=== PATIENT | female | born 1950 | race Caucasian/White ===

== ENCOUNTER 2017-03-27 06:48 | Day surgery (SDC) | payer MEDICARE ==
[~2017-03-27] VITALS: Ht 149.9 cm; Wt 72.7 kg
[~2017-03-27 06:48] MED LIST: ACET100V3 INH; ALBU0.63 NEB; ALBU6.7H INH; ALPR1TAB2 PO; BUDE10.2 INH; BUTA1CAP30 PO; CHOL500050 PO; DOCU100T3 PO; FLUN8.9H INH; HC/M25OI TP; HYDR25TA11 PO; HYDR50TA13 PO; LEVE500T53 PO; MAGN250T9 PO; MORP15TA3 PO; NITR0.4T SL; OMEG-147 PO; OMEP40CA6 PO; OXYC15TA PO; Oxygen INH; PRED5TAB PO; PRED5TAB19 PO; SERT25TA PO; SERT25TA3 PO; SILV20CR13 TP; SULF1TAB23 PO; VITA1TAB28 PO; [UNRECOGNIZED DRUG - CODE] PO; [UNRECOGNIZED DRUG - CODE] PO; [UNRECOGNIZED DRUG - OTHER] PO
[2017-03-27] MEDS ORDERED: ACETAMINOPHEN 325 MG TABLET PO PRN (07:30)
[2017-03-27] MEDS ORDERED: FENTANYL PF 100 MCG/2ML IV PRN (07:30)
[2017-03-27] MEDS ORDERED: hydrALAzine 20 MG/ML, 1ML IV PRN (07:30)
[2017-03-27] MEDS ORDERED: ONDANSETRON 2MG/ML, 2ML IVPush PRN (07:30)
[2017-03-27] MEDS ORDERED: LABETALOL 5MG/ML, 20ML IV PRN (07:30)
[2017-03-27] MEDS ORDERED: PROMETHAZINE 25 MG/ML, 1ML IV PRN (07:30)
[2017-03-27] MEDS ORDERED: OXYcodone 5 MG/5 ML ORAL.SOL UDC PO PRN (07:30)
[2017-03-27] MEDS ORDERED: HYDROmorphone 1 MG/ML, 1ML IV PRN (07:30)
[2017-03-27] MEDS ORDERED: LACTATED RINGERS 1,000 ML IV SCH (07:43)
[2017-03-27 07:56] VITALS: BP 98/60
[2017-03-27] MEDS ORDERED: FENTANYL PF 100 MCG/2ML ONE (08:10)
[2017-03-27] MEDS ORDERED: MIDAZOLAM 1 MG/ML, 2ML ONE (08:11)
[2017-03-27] MEDS ORDERED: PROPOFOL 10 MG/ML, 20ML ONE (08:20)
== END 2017-03-27 10:40 ==
LOC: OUT 06:48
PROVIDERS: ATTEND Specialist
DX: K29.50 Unspecified chronic gastritis without bleeding (principal); D12.7 Benign neoplasm of rectosigmoid junction; K62.1 Rectal polyp; K57.30 Diverticulosis of large intestine without perforation or abscess without bleeding; K21.9 Gastro-esophageal reflux disease without esophagitis; F41.9 Anxiety disorder, unspecified; J44.9 Chronic obstructive pulmonary disease, unspecified; Z86.010 Personal history of colon polyps; Z90.49 Acquired absence of other specified parts of digestive tract; Z87.39 Personal history of other diseases of the musculoskeletal system and connective tissue; Z87.01 Personal history of pneumonia (recurrent); Z86.73 Personal history of transient ischemic attack (TIA), and cerebral infarction without residual deficits; Z90.710 Acquired absence of both cervix and uterus; Z98.890 Other specified postprocedural states; Z87.891 Personal history of nicotine dependence
CPT/HCPCS: 43239; 45380; 88305; 93005; J2250; J2704; J3010; J7120

== ENCOUNTER 2018-10-02 12:36 | Emergency (ER) | payer MEDICARE, MEDICAID ==
--- NOTE | 2018-10-02 13:08 | NUR ---
pt to room from lobby
[2018-10-02 13:22] LABS: BASOPHILS # (AUTO) 0.02 x10^3/uL (0-0.1); BASOPHILS % (AUTO) 1 % (0-1); EOSINOPHILS # (AUTO) 0.02 x10^3/uL (0-0.4); EOSINOPHILS % (AUTO) 0 % (1-7); LYMPHOCYTES # (AUTO) 1.25 x10^3/uL (1-3.4); LYMPHOCYTES % (AUTO) 26 % (22-44); MD NO; MEAN CORPUSCULAR HEMOGLOBIN 30.9 pg (27.0-34.8); MEAN CORPUSCULAR HGB CONC 33.5 g/dL (32.4-35.8); MEAN CORPUSCULAR VOLUME 92.2 fL (80-100); MEAN PLATELET VOLUME 8.1 fL (7.4-10.4); MONOCYTES # (AUTO) 0.65 x10^3/uL (0.2-0.8); MONOCYTES % (AUTO) 13 % (2-9); NEUTROPHILS % (AUTO) 60 % (42-75); PLATELET COUNT 102 x10^3/uL (130-400); RED BLOOD COUNT 3.92 x10^6/uL (3.82-5.3); RED CELL DISTRIBUTION WIDTH 14.1 % (9.6-15.2)
[2018-10-02 13:33] LABS: CALCIUM 8.7 mg/dL (8.5-10.1); CREATININE 0.52 mg/dL (0.55-1.02)
[2018-10-02 13:34] LABS: RAPID INFLUENZA A Negative (Negative); RAPID INFLUENZA B Negative (Negative)
[2018-10-02 13:45] LABS: ANION GAP 2 mmol/L (5-15); CHLORIDE 98 mmol/L (98-107)
[2018-10-02] MEDS ORDERED: ALBUTEROL/IPRATROPIUM 2.5MG/0.5MG, 3 ML ONE (13:45)
--- NOTE | 2018-10-02 13:51 | NUR ---
pt presents to ED with c/o cough and sob 4 days. pt has hx copd and wears home oxygen at 4l/min. pt a&o, resps even and unlabored. all monitors in place. ekg taken by edt. rt at bedside for tx.
[2018-10-02] MEDS ORDERED: ALBUTEROL/IPRATROPIUM 2.5MG/0.5MG, 3 ML NPPB ONE (14:00)
--- NOTE | 2018-10-02 14:20 | NUR ---
Alexus RN note: Pt medicated per SEP. Pt states she is feeling better after breathing tx though mild wheezing is noted. Pt 94% on 4L via NC which pt states is her baseline. Pt provided with warm blanket per request, denies other needs.
[2018-10-02 15:04] VITALS: BP 125/48
--- NOTE | 2018-10-02 15:11 | NUR ---
pt a&o, resps even and unlabored. able to speak in full sentences without difficulty. pt reports symptom improvement s/p breathing tx. pt given dc instructions and script, educated regarding dc rx for zithromax and prednisone. pt wheeled to in wc, pt has her own portable oxygen, on at 4L/min at dc.
[2018-10-03] MEDS ORDERED: ALBU18HF INH (20:25)
[2018-10-03] MEDS ORDERED: FURO-93 PO (20:27)
[2018-10-03] MEDS ORDERED: ESCI20TA10 PO (20:27)
[2018-10-03] MEDS ORDERED: MEMA5TAB PO (20:29)
[2018-10-03] MEDS ORDERED: GABA600T7 PO (20:29)
[2018-10-03] MEDS ORDERED: NYST1POW TP (20:34)
== END 2018-10-02 15:05 | disposition home or self-care (01) ==
LOC: ED 13:00
DX: J96.11 Chronic respiratory failure with hypoxia (principal); J43.9 Emphysema, unspecified; G43.909 Migraine, unspecified, not intractable, without status migrainosus; E78.5 Hyperlipidemia, unspecified; I10 Essential (primary) hypertension; Z86.73 Personal history of transient ischemic attack (TIA), and cerebral infarction without residual deficits; Z90.49 Acquired absence of other specified parts of digestive tract
CPT/HCPCS: 36415; 71046; 80048; 83880; 85025; 87400; 93005; 94640; 99284; J7512; J7620

== ENCOUNTER 2018-10-03 16:30 | Inpatient (IN) | payer MEDICARE, MEDICAID ==
[~2018-10-03] VITALS: Ht 149.9 cm; Wt 82.4 kg
--- NOTE | 2018-10-03 16:39 | NUR ---
BIB [facility]-c/o SOB, seen here yesterday for same, states unable to lemon picker prescriptions given yesterday, states breathing worse. Pt speaking in 3-4 word sentences, lungs sound wheezing throughout. Pt placed in gown, positioned for comfort in bed. Continuous heart, oxygen and BP monitors applied, all safety measures observed.
[2018-10-03] MEDS ORDERED: MAGNESIUM SULFATE PMX 2GM/50ML 50 ML IVPB ONE (17:00)
--- NOTE | 2018-10-03 17:16 | NUR ---
Pt appears improved after breathing tx. Pt speaking in full sentences, resp even and unlabored, NADN. Pt provided water and pillow per request, denies other needs.
[2018-10-03] MEDS ORDERED: ONDANSETRON ODT 4 MG PO PRN (18:30)
[2018-10-03] MEDS ORDERED: NITROGLYCERIN 0.4 MG BOTTLE (25 TABS) SL PRN (18:30)
[2018-10-03] MEDS ORDERED: DOCUSATE 100 MG CAPSULE PO PRN (18:30)
[2018-10-03] MEDS ORDERED: ONDANSETRON 2MG/ML, 2ML IVPush PRN (18:30)
[2018-10-03] MEDS ORDERED: BENZONATATE 100 MG CAPSULE PO PRN (18:30)
[2018-10-03] MEDS ORDERED: TEMPLATE NON-FORMULARY MED. (Butalbital/Aspirin/Caffeine** (Fiorinal 50-325-40 Mg Capsule PO PRN (18:30)
[2018-10-03] MEDS ORDERED: ALBUTEROL/IPRATROPIUM 2.5MG/0.5MG, 3 ML ONE (18:34)
[2018-10-03] MEDS: ALBUTEROL/IPRATROPIUM 2.5MG/0.5MG, 3 ML NPPB SCH ×2 (18:38→22:30)
--- NOTE | 2018-10-03 18:56 | NUR ---
Report to Chyna ALCANTAR.
[2018-10-03] MEDS ORDERED: ALBUTEROL SULFATE 2.5 MG/3 ML NPPB PRN ×2 (19:00→20:30)
--- NOTE | 2018-10-03 19:04 | NUR ---
REPORT RECEIVED FROM SAVANNAH ALCANTAR.
--- NOTE | 2018-10-03 19:32 | NUR ---
REPORT GIVEN TO BERENICE ALCANTAR. ALL QUESTIONS ANSWERED.
[2018-10-03 20:00] VITALS: BP 106/66
[2018-10-03] MEDS ORDERED: ALBU18HF INH (20:25)
[2018-10-03] MEDS ORDERED: ESCI20TA10 PO (20:27)
[2018-10-03] MEDS ORDERED: FURO-93 PO (20:27)
[2018-10-03] MEDS ORDERED: MEMA5TAB PO (20:29)
[2018-10-03] MEDS ORDERED: GABA600T7 PO (20:29)
[2018-10-03] MEDS ORDERED: ALBUTEROL SULFATE 2.5 MG/3 ML NPPB SCH (20:30)
[2018-10-03] MEDS ORDERED: NYST1POW TP (20:34)
[2018-10-03] MEDS ORDERED: BUDESONIDE 0.5 MG/2 ML INHA INH SCH (21:00)
[2018-10-03] MEDS: FLUNISOLIDE INH SCH (22:11)
[2018-10-03] MEDS: BUDESONIDE 0.5 MG/2 ML INHA INH SCH (22:30)
[2018-10-03] MEDS: LEVETIRACETAM 500 MG TABLET PO SCH (22:36)
[2018-10-03] MEDS: ENOXAPARIN 40 MG/0.4 ML SQ SCH (22:36)
[2018-10-03] MEDS: OXYcodone IR 5MG TABLET PO SCH (22:37)
[2018-10-03] MEDS: TRAZODONE 50MG TABLET PO PRN (22:41)
[2018-10-04 01:26] VITALS: BP 108/67
[2018-10-04] MEDS: ALBUTEROL/IPRATROPIUM 2.5MG/0.5MG, 3 ML NPPB SCH ×6 (04:35→22:35)
[2018-10-04] MEDS: OMEPRAZOLE 20 MG CAPSULE.DR PO SCH (05:04)
[2018-10-04 06:38] LABS: BASOPHILS # (AUTO) 0.03 x10^3/uL (0-0.1); BASOPHILS % (AUTO) 1 % (0-1); EOSINOPHILS # (AUTO) 0.03 x10^3/uL (0-0.4); EOSINOPHILS % (AUTO) 1 % (1-7); LYMPHOCYTES # (AUTO) 1.45 x10^3/uL (1-3.4); LYMPHOCYTES % (AUTO) 27 % (22-44); MD NO; MEAN CORPUSCULAR HEMOGLOBIN 30.1 pg (27.0-34.8); MEAN CORPUSCULAR HGB CONC 32.4 g/dL (32.4-35.8); MEAN CORPUSCULAR VOLUME 92.8 fL (80-100); MEAN PLATELET VOLUME 8.3 fL (7.4-10.4); MONOCYTES # (AUTO) 0.58 x10^3/uL (0.2-0.8); MONOCYTES % (AUTO) 11 % (2-9); NEUTROPHILS # (AUTO) 3.33 x10^3/uL (1.8-6.8); NEUTROPHILS % (AUTO) 61 % (42-75); PLATELET COUNT 100 x10^3/uL (130-400); RED BLOOD COUNT 3.71 x10^6/uL (3.82-5.3); RED CELL DISTRIBUTION WIDTH 14.1 % (9.6-15.2)
[2018-10-04 06:45] LABS: CHLORIDE 99 mmol/L (98-107)
[2018-10-04 07:12] LABS: ANION GAP 1 mmol/L (5-15); CALCIUM 8.6 mg/dL (8.5-10.1); CREATININE 0.51 mg/dL (0.55-1.02)
[2018-10-04] MEDS: BUDESONIDE 0.5 MG/2 ML INHA INH SCH ×3 (07:40→22:38)
[2018-10-04 07:47] VITALS: BP 135/75
[2018-10-04] MEDS: MAGNESIUM OXIDE 400 MG TABLET PO SCH (08:05)
[2018-10-04] MEDS: SERTRALINE 50MG TABLET PO SCH (08:05)
[2018-10-04] MEDS: LEVETIRACETAM 500 MG TABLET PO SCH ×3 (08:05→22:03)
[2018-10-04] MEDS: FLUNISOLIDE INH SCH ×3 (08:07→22:17)
[2018-10-04] MEDS: OXYcodone IR 5MG TABLET PO SCH ×2 (08:08→21:47)
[2018-10-04] MEDS ORDERED: AZITHROMYCIN 500 MG TABLET PO ONE (08:30)
[2018-10-04] MEDS ORDERED: ERGOCALCIFEROL 50,000 UNIT CAPSULE PO SCH (09:00)
[2018-10-04 09:43] LABS: TROPONIN I < 0.015 ng/mL (0.000-0.045)
[2018-10-04] MEDS: CEFTRIAXONE PMX 2GM/50ML 50 ML IV SCH (09:52)
[2018-10-04] MEDS: SILVER SULF. CRM 1% , 25GM TP SCH (10:17)
[2018-10-04] MEDS: methylPREDNISolone SOD SUCC 125 MG/2 ML IVPush SCH ×2 (11:00→16:07)
[2018-10-04 12:43] VITALS: BP 106/67
[2018-10-04] MEDS: hydrOXyzine 50MG TABLET PO PRN (16:15)
[2018-10-04] MEDS: ENOXAPARIN 40 MG/0.4 ML SQ SCH (18:19)
[2018-10-04 19:48] VITALS: BP 102/63
[2018-10-05 00:35] VITALS: BP 104/58
[2018-10-05] MEDS: ALBUTEROL/IPRATROPIUM 2.5MG/0.5MG, 3 ML NPPB SCH ×5 (04:25→19:38)
[2018-10-05] MEDS: SODIUM CHLORIDE NASAL SPRAY 45ML BOTTLE NAS PRN (05:24)
[2018-10-05] MEDS: OMEPRAZOLE 20 MG CAPSULE.DR PO SCH (05:24)
[2018-10-05] MEDS: hydrOXyzine 50MG TABLET PO PRN ×2 (05:38→20:16)
[2018-10-05 06:09] LABS: MEAN CORPUSCULAR HEMOGLOBIN 30.8 pg (27.0-34.8); MEAN CORPUSCULAR HGB CONC 33.2 g/dL (32.4-35.8); MEAN CORPUSCULAR VOLUME 92.9 fL (80-100); MEAN PLATELET VOLUME 8.4 fL (7.4-10.4); PLATELET COUNT 96 x10^3/uL (130-400); RED BLOOD COUNT 3.69 x10^6/uL (3.82-5.3); RED CELL DISTRIBUTION WIDTH 14.1 % (9.6-15.2)
[2018-10-05 06:15] LABS: CALCIUM 8.6 mg/dL (8.5-10.1); CHLORIDE 98 mmol/L (98-107); CREATININE 0.45 mg/dL (0.55-1.02)
[2018-10-05 06:26] LABS: ANION GAP 1 mmol/L (5-15); MD YES
[2018-10-05 06:31] LABS: LYMPH#(MANUAL) 1.65 x10^3/uL (1-3.4); LYMPHS% (MANUAL) 47 % (22-44); MONOS#(MANUAL) 0.32 x10^3/uL (0.3-2.7); MONOS% (MANUAL) 9 % (2-9); SEG#(MANUAL) 1.54 x10^3/uL (1.8-6.8); SEGS% (MANUAL) 44 % (42-75)
[2018-10-05 06:32] LABS: <PLATELET ESTIMATE> DECREASED; <PLT MORPHOLOGY> NORMAL PLT MORPH; <RBC MORPHOLOGY> NORMAL
[2018-10-05 07:13] VITALS: BP 110/63
[2018-10-05] MEDS: FLUNISOLIDE INH SCH ×2 (08:56→20:11)
[2018-10-05] MEDS: BUDESONIDE 0.5 MG/2 ML INHA INH SCH ×2 (09:00→19:38)
[2018-10-05] MEDS: OXYcodone IR 5MG TABLET PO SCH ×2 (09:00→20:11)
[2018-10-05] MEDS: CEFTRIAXONE PMX 2GM/50ML 50 ML IV SCH (09:01)
[2018-10-05] MEDS: GABAPENTIN 300 MG CAPSULE PO SCH ×3 (09:01→20:11)
[2018-10-05] MEDS: MAGNESIUM OXIDE 400 MG TABLET PO SCH (09:02)
[2018-10-05] MEDS: SERTRALINE 50MG TABLET PO SCH (09:02)
[2018-10-05] MEDS: LEVETIRACETAM 500 MG TABLET PO SCH ×3 (09:02→20:11)
[2018-10-05] MEDS: AZITHROMYCIN 250 MG TABLET PO SCH (09:02)
[2018-10-05] MEDS: SILVER SULF. CRM 1% , 25GM TP SCH (09:05)
[2018-10-05 13:17] VITALS: BP 114/69
[2018-10-05 18:36] VITALS: BP 110/64
[2018-10-05] MEDS: ENOXAPARIN 40 MG/0.4 ML SQ SCH (20:11)
[2018-10-06 01:06] VITALS: BP 116/71
[2018-10-06] MEDS: SODIUM CHLORIDE NASAL SPRAY 45ML BOTTLE NAS PRN (03:07)
[2018-10-06] MEDS: TRAZODONE 50MG TABLET PO PRN (03:09)
[2018-10-06] MEDS: hydrOXyzine 50MG TABLET PO PRN (05:22)
[2018-10-06] MEDS: OMEPRAZOLE 20 MG CAPSULE.DR PO SCH (05:22)
[2018-10-06 06:27] LABS: BASOPHILS # (AUTO) 0.02 x10^3/uL (0-0.1); BASOPHILS % (AUTO) 0 % (0-1); EOSINOPHILS % (AUTO) 0 % (1-7); LYMPHOCYTES # (AUTO) 2.19 x10^3/uL (1-3.4); LYMPHOCYTES % (AUTO) 49 % (22-44); MD NO; MEAN CORPUSCULAR HEMOGLOBIN 30.7 pg (27.0-34.8); MEAN CORPUSCULAR HGB CONC 32.8 g/dL (32.4-35.8); MEAN CORPUSCULAR VOLUME 93.6 fL (80-100); MEAN PLATELET VOLUME 8.4 fL (7.4-10.4); MONOCYTES # (AUTO) 0.54 x10^3/uL (0.2-0.8); MONOCYTES % (AUTO) 12 % (2-9); NEUTROPHILS % (AUTO) 38 % (42-75); PLATELET COUNT 101 x10^3/uL (130-400); RED BLOOD COUNT 3.63 x10^6/uL (3.82-5.3); RED CELL DISTRIBUTION WIDTH 13.8 % (9.6-15.2)
[2018-10-06 06:37] VITALS: BP 120/74
[2018-10-06 06:38] LABS: ANION GAP 0 mmol/L (5-15); CALCIUM 8.9 mg/dL (8.5-10.1); CHLORIDE 98 mmol/L (98-107)
[2018-10-06 06:39] LABS: CREATININE 0.49 mg/dL (0.55-1.02)
[2018-10-06] MEDS: ALBUTEROL/IPRATROPIUM 2.5MG/0.5MG, 3 ML NPPB SCH ×4 (07:58→19:54)
[2018-10-06] MEDS: BUDESONIDE 0.5 MG/2 ML INHA INH SCH ×2 (07:58→19:54)
[2018-10-06] MEDS: OXYcodone IR 5MG TABLET PO SCH ×2 (09:00→20:30)
[2018-10-06] MEDS: FLUNISOLIDE INH SCH ×2 (09:00→20:31)
[2018-10-06] MEDS: CEFTRIAXONE PMX 2GM/50ML 50 ML IV SCH (09:59)
[2018-10-06] MEDS: methylPREDNISolone SOD SUCC 125 MG/2 ML IVPush SCH ×2 (09:59→20:30)
[2018-10-06] MEDS: SERTRALINE 50MG TABLET PO SCH (10:00)
[2018-10-06] MEDS: GABAPENTIN 300 MG CAPSULE PO SCH ×3 (10:00→20:31)
[2018-10-06] MEDS: MAGNESIUM OXIDE 400 MG TABLET PO SCH (10:01)
[2018-10-06] MEDS: AZITHROMYCIN 250 MG TABLET PO SCH (10:01)
[2018-10-06] MEDS: LEVETIRACETAM 500 MG TABLET PO SCH ×3 (10:02→20:30)
[2018-10-06 13:39] VITALS: BP 126/76
[2018-10-06] MEDS: SILVER SULF. CRM 1% , 25GM TP SCH (16:22)
[2018-10-06 19:53] VITALS: BP 112/63
[2018-10-06] MEDS: ENOXAPARIN 40 MG/0.4 ML SQ SCH (20:31)
[2018-10-07 01:35] VITALS: BP 125/80
[2018-10-07] MEDS: TRAZODONE 50MG TABLET PO PRN (01:37)
[2018-10-07] MEDS: OMEPRAZOLE 20 MG CAPSULE.DR PO SCH (05:37)
[2018-10-07 06:43] LABS: BASOPHILS # (AUTO) 0.01 x10^3/uL (0-0.1); BASOPHILS % (AUTO) 0 % (0-1); EOSINOPHILS # (AUTO) 0.03 x10^3/uL (0-0.4); EOSINOPHILS % (AUTO) 1 % (1-7); LYMPHOCYTES # (AUTO) 1.38 x10^3/uL (1-3.4); LYMPHOCYTES % (AUTO) 34 % (22-44); MD NO; MEAN CORPUSCULAR HGB CONC 33.5 g/dL (32.4-35.8); MEAN CORPUSCULAR VOLUME 92.5 fL (80-100); MEAN PLATELET VOLUME 8.1 fL (7.4-10.4); MONOCYTES # (AUTO) 0.37 x10^3/uL (0.2-0.8); MONOCYTES % (AUTO) 9 % (2-9); NEUTROPHILS # (AUTO) 2.28 x10^3/uL (1.8-6.8); NEUTROPHILS % (AUTO) 56 % (42-75); PLATELET COUNT 120 x10^3/uL (130-400); RED BLOOD COUNT 3.68 x10^6/uL (3.82-5.3); RED CELL DISTRIBUTION WIDTH 13.5 % (9.6-15.2)
[2018-10-07 06:55] LABS: CALCIUM 9.1 mg/dL (8.5-10.1)
[2018-10-07] MEDS: BUDESONIDE 0.5 MG/2 ML INHA INH SCH (06:55)
[2018-10-07] MEDS: ALBUTEROL/IPRATROPIUM 2.5MG/0.5MG, 3 ML NPPB SCH ×3 (06:55→14:28)
[2018-10-07 06:59] LABS: ALANINE AMINOTRANSFERASE 44 U/L (12-78); ALKALINE PHOSPHATASE 77 U/L (45-117); BILIRUBIN,TOTAL 0.3 mg/dL (0.2-1.0); CREATININE 0.41 mg/dL (0.55-1.02)
[2018-10-07 07:07] VITALS: BP 127/79
[2018-10-07 07:08] LABS: CHLORIDE 96 mmol/L (98-107)
[2018-10-07 07:11] LABS: ANION GAP 2 mmol/L (5-15)
[2018-10-07] MEDS: methylPREDNISolone SOD SUCC 125 MG/2 ML IVPush SCH (08:47)
[2018-10-07] MEDS: OXYcodone IR 5MG TABLET PO SCH ×2 (08:55→08:59)
[2018-10-07] MEDS: LEVETIRACETAM 500 MG TABLET PO SCH (08:55)
[2018-10-07] MEDS: GABAPENTIN 300 MG CAPSULE PO SCH (08:55)
[2018-10-07] MEDS: AZITHROMYCIN 250 MG TABLET PO SCH (08:55)
[2018-10-07] MEDS: MAGNESIUM OXIDE 400 MG TABLET PO SCH (08:55)
[2018-10-07] MEDS: SERTRALINE 50MG TABLET PO SCH (08:55)
[2018-10-07] MEDS: FLUNISOLIDE INH SCH (08:56)
[2018-10-07] MEDS: CEFTRIAXONE PMX 2GM/50ML 50 ML IV SCH (08:56)
[2018-10-07] MEDS: SILVER SULF. CRM 1% , 25GM TP SCH (08:56)
[2018-10-07 12:23] VITALS: BP 138/72
[2018-10-07] MEDS ORDERED: AZIT250T89 PO (12:59)
[2018-10-07] MEDS ORDERED: CEFD300C37 PO (13:01)
[2018-10-07] MEDS ORDERED: PRED20TA PO (13:06)
== END 2018-10-07 15:30 | disposition home health service (06) | DRG 189 ==
LOC: ED 17:40 → EDIP 18:17 → 4EST 19:56 → DCLOUNGE 10-07 15:00
PROVIDERS: ADMIT Family Medicine; ATTEND Family Medicine
DX: J96.21 Acute and chronic respiratory failure with hypoxia (principal); J44.1 Chronic obstructive pulmonary disease with (acute) exacerbation; E78.5 Hyperlipidemia, unspecified; F03.90 Unspecified dementia, unspecified severity, without behavioral disturbance, psychotic disturbance, mood disturbance, and anxiety; G40.909 Epilepsy, unspecified, not intractable, without status epilepticus; I10 Essential (primary) hypertension; L40.9 Psoriasis, unspecified; M34.9 Systemic sclerosis, unspecified; F17.200 Nicotine dependence, unspecified, uncomplicated; Z90.49 Acquired absence of other specified parts of digestive tract; Z99.81 Dependence on supplemental oxygen; Z88.3 Allergy status to other anti-infective agents; Z91.013 Allergy to seafood; Z91.048 Other nonmedicinal substance allergy status; Z88.0 Allergy status to penicillin; Z88.8 Allergy status to other drugs, medicaments and biological substances; Z79.899 Other long term (current) drug therapy; Z86.73 Personal history of transient ischemic attack (TIA), and cerebral infarction without residual deficits; Z82.49 Family history of ischemic heart disease and other diseases of the circulatory system; Z83.3 Family history of diabetes mellitus; Z82.5 Family history of asthma and other chronic lower respiratory diseases
CPT/HCPCS: 36415; 80048; 80053; 83735; 84100; 84443; 84484; 85025; 93005; 93306; 94640; 96365; 96366; 99285; G0378; J0696; J1650; J7620; J7626; J2930; J3475; J7512

== ENCOUNTER 2020-04-13 10:32 | Inpatient (IN) | payer MEDICARE, MEDICAID ==
[~2020-04-13] VITALS: Ht 152.4 cm; Wt 82.6 kg
[~2020-04-13 10:32] MED LIST changes: +ALBU18HF INH; -ALBU6.7H INH; +ALBU6.7H8 INH; +AZIT250T89 PO; +BUTA1CAP59 PO; +CEFD300C37 PO; +ESCI20TA10 PO; +FURO-93 PO; +GABA600T7 PO; +HYDR-826 PO; -HYDR25TA11 PO; -HYDR50TA13 PO; +HYDR50TA99 PO; +MEMA5TAB PO; +MORP-29 PO; -MORP15TA3 PO; -NITR0.4T SL; +NITR0.4T41 SL; +NYST1POW TP; +OMEP40CA42 PO; -OMEP40CA6 PO; -OXYC15TA PO; +OXYC15TA3 PO; +PRED20TA PO
[2020-04-13] MEDS ORDERED: SODIUM CHLORIDE FLUSH 10ML SYR IVF ONE (12:00)
--- NOTE | 2020-04-13 12:06 | NUR ---
PT STRAIGHT CATH UA COMPLETED PER ORDERS, SENT TO LAB. PT'S SON AT BEDSIDE, AWARE OF POC. PT ON MONITORS, VSS. PT AWAITING ALL LABS RESULTS. CONT TO MONITOR.
[2020-04-13 12:18] LABS: ALANINE AMINOTRANSFERASE 19 U/L (12-78); ALBUMIN 3.2 g/dL (3.4-5.0); CALCIUM 9.2 mg/dL (8.5-10.1)
[2020-04-13 12:19] LABS: MICROSCOPIC NOT IND
[2020-04-13 12:24] LABS: ALKALINE PHOSPHATASE 89 U/L (45-117); BILIRUBIN,TOTAL 0.3 mg/dL (0.2-1.0); CREATININE 0.44 mg/dL (0.55-1.02); TOTAL PROTEIN 6.5 g/dL (6.4-8.2)
[2020-04-13 12:40] LABS: ANION GAP -3 mmol/L (5-15); CHLORIDE 90 mmol/L (98-107)
[2020-04-13 12:47] LABS: MEAN CORPUSCULAR HEMOGLOBIN 30.3 pg (27.0-34.8); MEAN CORPUSCULAR HGB CONC 30.7 g/dL (32.4-35.8); MEAN PLATELET VOLUME 8.8 fL (7.4-10.4); PLATELET COUNT 130 x10^3/uL (130-400); RED BLOOD COUNT 3.87 x10^6/uL (3.82-5.3); RED CELL DISTRIBUTION WIDTH 14.2 % (9.6-15.2)
[2020-04-13 12:48] LABS: BASOPHILS # (AUTO) 0.03 x10^3/uL (0-0.1); BASOPHILS % (AUTO) 0 % (0-1); EOSINOPHILS # (AUTO) 0.17 x10^3/uL (0-0.4); EOSINOPHILS % (AUTO) 2 % (1-7); LYMPHOCYTES # (AUTO) 3.03 x10^3/uL (1-3.4); LYMPHOCYTES % (AUTO) 34 % (22-44); MD SCAN; MONOCYTES # (AUTO) 0.77 x10^3/uL (0.2-0.8); MONOCYTES % (AUTO) 9 % (2-9); NEUTROPHILS # (AUTO) 5.01 x10^3/uL (1.8-6.8); NEUTROPHILS % (AUTO) 56 % (42-75)
[2020-04-13] MEDS ORDERED: CEFTRIAXONE PMX 1GM/50ML 50 ML IVPB ONE (13:00)
[2020-04-13] MEDS ORDERED: AZITHROMYCIN 500 MG in SODIUM CHLORIDE 0.9% 250 ML IVPB ONE (13:00)
--- NOTE | 2020-04-13 13:08 | NUR ---
PER ERMD, PT OK TO HAVE MEAL TRAY, FOOD ORDERED. PT REMAINS ON MONITORS, VSS. PT TO BE [place] ADMIT, PT AWARE OF POC. WILL HANG IVABX AFTER BLOOD CULTURES X2 DRAWN. NO DISTRESS, CONT TO MONITOR.
[2020-04-13] MEDS ORDERED: CEFTRIAXONE PMX 1GM/50ML 50 ML ONE (13:27)
[2020-04-13] MEDS ORDERED: SODIUM CHLORIDE FLUSH 10ML SYR IVF PRN (13:30)
--- NOTE | 2020-04-13 13:37 | NUR ---
PT GIVEN MEAL TRAY. PT REMAINS ON MONITORS, VSS. PT AWAITING ADMIT BED. NO DISTRESS. CONT TO MONITOR.
--- NOTE | 2020-04-13 13:59 | NUR ---
REPORT GIVEN TO JANESSA ALCANTAR.
--- NOTE | 2020-04-13 14:03 | NUR ---
FIRST CONTACT WITH PT, PT SITTING UP EATING, O2 SATS ABOVE 90%, WAITING FOR ADMISSION BED. CALL GEORGE IN REACH, RAILS UP, ON MONITOR. VSS.
--- NOTE | 2020-04-13 14:12 | NUR ---
REPORT GIVEN TO LEONID ALCANTAR ON MED/SURG.
[2020-04-13] MEDS ORDERED: HYDR-826 PO (14:14)
[2020-04-13] MEDS ORDERED: DONE5TAB7 PO (14:14)
--- NOTE | 2020-04-13 14:23 | NUR ---
LEFT RADIAL ART STICK BY LAB DONE. HOSPITALIST AT BEDSIDE. 2ND ABX STARTED, ALL BC DRAWN. WAITING FOR TRANSPORT TO FLOOR. SPEAKS VERY FULL COMPLETE SENTENCES.
[2020-04-13] MEDS ORDERED: LORazepam 2 MG/ML, 1ML IVPush PRN (14:30)
--- NOTE | 2020-04-13 14:42 | NUR ---
FIRST BG UNABLE TO RUN. CRA OFFICER CAME BACK TO REDRAW AND PT REFUSED.
[2020-04-13] MEDS ORDERED: TOPI50CA6 PO (15:28)
[2020-04-13] MEDS ORDERED: GALC120S SC (15:36)
[2020-04-13] MEDS ORDERED: LEVETIRACETAM 500 MG TABLET PO SCH (16:00)
[2020-04-13 16:03] VITALS: BP 135/96
[2020-04-13] MEDS: LEVETIRACETAM 500 MG TABLET PO SCH ×2 (16:26→22:10)
[2020-04-13] MEDS: GABAPENTIN 300 MG CAPSULE PO SCH ×2 (16:26→22:11)
[2020-04-13] MEDS: ENOXAPARIN 40 MG/0.4 ML SQ SCH (16:26)
[2020-04-13 19:02] VITALS: BP 118/67
[2020-04-13] MEDS: NICOTINE 14MG/24 HR PATCH.TD24 TD SCH (22:10)
[2020-04-13] MEDS: MINERA CRM, 60GM TP SCH (22:11)
[2020-04-13] MEDS: TOPIRAMATE 25 MG TABLET PO SCH (22:11)
[2020-04-13] MEDS: MEMANTINE 5MG TABLET PO SCH (22:11)
[2020-04-14 01:37] LABS: AMPHETAMINE SCREEN, URINE Negative (Negative); BARBITURATE SCREEN, URINE Negative (Negative); BENZODIAZEPINE SCREEN, URINE Negative (Negative); CANNABINOID SCREEN, URINE Negative (Negative); METHADONE SCREEN, URINE Negative (Negative); OPIATE SCREEN, URINE Negative (Negative)
[2020-04-14 01:50] LABS: COCAINE SCREEN, URINE Negative (Negative)
[2020-04-14 03:48] LABS: BASOPHILS # (AUTO) 0.02 x10^3/uL (0-0.1); BASOPHILS % (AUTO) 0 % (0-1); EOSINOPHILS % (AUTO) 0 % (1-7); LYMPHOCYTES # (AUTO) 1.38 x10^3/uL (1-3.4); LYMPHOCYTES % (AUTO) 28 % (22-44); MD NO; MEAN CORPUSCULAR HEMOGLOBIN 30.5 pg (27.0-34.8); MEAN CORPUSCULAR HGB CONC 31.4 g/dL (32.4-35.8); MEAN PLATELET VOLUME 8.2 fL (7.4-10.4); MONOCYTES # (AUTO) 0.15 x10^3/uL (0.2-0.8); MONOCYTES % (AUTO) 3 % (2-9); NEUTROPHILS # (AUTO) 3.35 x10^3/uL (1.8-6.8); NEUTROPHILS % (AUTO) 68 % (42-75); PLATELET COUNT 133 x10^3/uL (130-400); RED BLOOD COUNT 3.76 x10^6/uL (3.82-5.3); RED CELL DISTRIBUTION WIDTH 13.8 % (9.6-15.2)
[2020-04-14 04:03] LABS: CALCIUM 9.5 mg/dL (8.5-10.1); CHLORIDE 91 mmol/L (98-107)
[2020-04-14 04:31] LABS: CREATININE 0.42 mg/dL (0.55-1.02)
[2020-04-14 05:27] LABS: ANION GAP < 0 mmol/L (5-15)
[2020-04-14] MEDS: ALBUTEROL SULFATE 2.5 MG/3 ML NPPB SCH ×4 (07:00→19:21)
[2020-04-14] MEDS ORDERED: SODIUM CHLORIDE 0.9% 500 ML IV ONE (08:30)
[2020-04-14] MEDS: MEMANTINE 5MG TABLET PO SCH ×2 (09:14→20:58)
[2020-04-14] MEDS: GABAPENTIN 300 MG CAPSULE PO SCH ×3 (09:14→20:58)
[2020-04-14] MEDS: LEVETIRACETAM 500 MG TABLET PO SCH ×3 (09:15→20:58)
[2020-04-14] MEDS: TOPIRAMATE 25 MG TABLET PO SCH ×2 (09:15→20:58)
[2020-04-14] MEDS: ACETAMINOPHEN 325 MG TABLET PO PRN (09:15)
[2020-04-14] MEDS: MINERA CRM, 60GM TP SCH ×2 (09:16→21:00)
[2020-04-14] MEDS: FLUTICASONE/VILANTEROL 200-25MCG/INH INH SCH (09:17)
[2020-04-14] MEDS ORDERED: PHENAZOPYRIDINE 100 MG TABLET PO PRN (10:00)
--- NOTE | 2020-04-14 10:08 | NUR ---
D/C Rec: Home with son's supervision Addendum: 04/14/20 at 1009 by Karma REDDY Amended: Links added.
[2020-04-14] MEDS: DONEPEZIL 5 MG TABLET PO SCH (10:09)
[2020-04-14] MEDS ORDERED: CEFTRIAXONE PMX 1GM/50ML 50 ML IV SCH (13:30)
[2020-04-14] MEDS: AZITHROMYCIN 500 MG in SODIUM CHLORIDE 0.9% 250 ML IV SCH (14:24)
[2020-04-14] MEDS ORDERED: ONDANSETRON 2MG/ML, 2ML IVPush PRN (15:00)
[2020-04-14] MEDS: ENOXAPARIN 40 MG/0.4 ML SQ SCH (16:15)
[2020-04-14] MEDS: NICOTINE 14MG/24 HR PATCH.TD24 TD SCH (20:13)
[2020-04-14] MEDS ORDERED: GABAPENTIN 400 MG CAPSULE ONE (20:47)
[2020-04-14] MEDS ORDERED: GABAPENTIN 100 MG CAPSULE ONE (20:47)
[2020-04-15 04:26] LABS: CALCIUM 9.1 mg/dL (8.5-10.1); CHLORIDE 97 mmol/L (98-107); CREATININE 0.48 mg/dL (0.55-1.02)
[2020-04-15 04:49] LABS: ANION GAP -2 mmol/L (5-15)
[2020-04-15] MEDS: ALBUTEROL SULFATE 2.5 MG/3 ML NPPB SCH (07:07)
[2020-04-15] MEDS: GABAPENTIN 300 MG CAPSULE PO SCH ×3 (08:50→20:07)
[2020-04-15] MEDS: MINERA CRM, 60GM TP SCH ×2 (08:51→20:07)
[2020-04-15] MEDS: MEMANTINE 5MG TABLET PO SCH ×2 (08:51→20:08)
[2020-04-15] MEDS: DONEPEZIL 5 MG TABLET PO SCH (08:51)
[2020-04-15] MEDS: LEVETIRACETAM 500 MG TABLET PO SCH ×3 (08:51→20:08)
[2020-04-15] MEDS: TOPIRAMATE 25 MG TABLET PO SCH ×2 (08:51→20:08)
[2020-04-15] MEDS: DOCUSATE 100 MG CAPSULE PO PRN ×2 (08:53→20:08)
[2020-04-15] MEDS: FLUTICASONE/VILANTEROL 200-25MCG/INH INH SCH (08:57)
[2020-04-15] MEDS: ACETAMINOPHEN 325 MG TABLET PO PRN (09:07)
[2020-04-15] MEDS: ALBUTEROL-IPRATROPIUM MDI INH INH SCH ×3 (11:44→20:00)
[2020-04-15 12:59] VITALS: BP 110/70
[2020-04-15] MEDS: ENOXAPARIN 40 MG/0.4 ML SQ SCH (15:30)
[2020-04-15] MEDS: AZITHROMYCIN 500 MG in SODIUM CHLORIDE 0.9% 250 ML IV SCH (17:03)
[2020-04-15] MEDS: NICOTINE 14MG/24 HR PATCH.TD24 TD SCH (20:07)
[2020-04-15 20:15] VITALS: BP 117/72
[2020-04-16 00:09] VITALS: BP 109/72
[2020-04-16 07:15] VITALS: BP 130/74
[2020-04-16] MEDS: ALBUTEROL-IPRATROPIUM MDI INH INH SCH ×2 (07:30→11:15)
[2020-04-16] MEDS: FLUTICASONE/VILANTEROL 200-25MCG/INH INH SCH (07:30)
[2020-04-16] MEDS ORDERED: TOPIRAMATE 100 MG TABLET ONE (07:41)
[2020-04-16] MEDS: LEVETIRACETAM 500 MG TABLET PO SCH (07:49)
[2020-04-16] MEDS: DONEPEZIL 5 MG TABLET PO SCH (07:49)
[2020-04-16] MEDS: GABAPENTIN 300 MG CAPSULE PO SCH (07:49)
[2020-04-16] MEDS: MEMANTINE 5MG TABLET PO SCH (07:49)
[2020-04-16] MEDS: MINERA CRM, 60GM TP SCH (07:49)
[2020-04-16] MEDS: TOPIRAMATE 25 MG TABLET PO SCH (07:49)
[2020-04-16] MEDS: DOCUSATE 100 MG CAPSULE PO PRN (11:36)
[2020-04-16 12:39] VITALS: BP 130/79
[2020-04-16] MEDS ORDERED: PRED10TA PO (12:53)
[2020-04-16] MEDS ORDERED: AZIT250T PO (12:53)
== END 2020-04-16 15:37 | disposition home health service (06) | DRG 193 ==
LOC: ED 11:12 → EDIP 13:24 → 3N 15:07 → CCU 20:35 → 3N 04-15 12:51
PROVIDERS: ADMIT Hospitalist; ATTEND Internal Medicine
DX: J18.9 Pneumonia, unspecified organism (principal); G93.41 Metabolic encephalopathy; J96.21 Acute and chronic respiratory failure with hypoxia; J96.22 Acute and chronic respiratory failure with hypercapnia; J44.1 Chronic obstructive pulmonary disease with (acute) exacerbation; J44.0 Chronic obstructive pulmonary disease with (acute) lower respiratory infection; E66.9 Obesity, unspecified; E78.5 Hyperlipidemia, unspecified; F17.200 Nicotine dependence, unspecified, uncomplicated; G25.0 Essential tremor; G30.9 Alzheimer's disease, unspecified; G40.909 Epilepsy, unspecified, not intractable, without status epilepticus; G43.909 Migraine, unspecified, not intractable, without status migrainosus; I10 Essential (primary) hypertension; L40.9 Psoriasis, unspecified; M34.9 Systemic sclerosis, unspecified; Z86.73 Personal history of transient ischemic attack (TIA), and cerebral infarction without residual deficits; Z91.19 Patient's noncompliance with other medical treatment and regimen; F02.80 Dementia in other diseases classified elsewhere, unspecified severity, without behavioral disturbance, psychotic disturbance, mood disturbance, and anxiety; E04.1 Nontoxic single thyroid nodule; G47.33 Obstructive sleep apnea (adult) (pediatric)
CPT/HCPCS: 36415; 36600; 70450; 71045; 80048; 80053; 80177; 80307; 81003; 82140; 82607; 82800; 82803; 83605; 83735; 83880; 84100; 84145; 84443; 85025; 87040; 87081; 93005; 94640; 95819; 96365; 96367; 99285; G0378; J0456; J0696; J1650; J2405; J7613; 92523-GN; J7040; J7050; J7512